=== PATIENT | female | born 1935 ===

== ENCOUNTER 2023-04-29 09:30 | Inpatient (IN) | payer OTHER ==
[~2023-04-29] VITALS: Ht 157.5 cm; Wt 54.4 kg
[2023-04-29] MEDS ORDERED: GLUMETZA500 MG (12:58)
[2023-04-29] MEDS ORDERED: OMEPRAZOLE MAGN20 MG (12:58)
[2023-04-29] MEDS ORDERED: VASOTEC20 M1 (12:59)
[2023-04-29] MEDS ORDERED: LIPITOR40 MG (12:59)
[2023-04-29] MEDS ORDERED: FENOFIBRIC ACI105 MG (12:59)
[2023-04-29] MEDS ORDERED: PROPRANOLOL HCL20 MG (12:59)
[2023-05-06] MEDS ORDERED: HEMOSTATIC MATRIX 1 KIT KIT TOP ONE ×2 (08:00→11:18)
[2023-05-06] MEDS ORDERED: BUPIVACAINE HCL/PF 0.25% 30ML VIAL InF ONE (08:00)
[2023-05-06] MEDS ORDERED: METRONIDAZOLE/SODIUM CHLORIDE 500 MG/100 ML PIGGYBACK IV ONE ×2 (08:00→17:37)
[2023-05-06] MEDS ORDERED: CEFTRIAXONE SODIUM 2,000 MG VIAL ONE (08:00)
[2023-05-06] MEDS ORDERED: LIDOCAINE HCL 1%/Epi 20ML VIAL IJ ONE ×2 (08:00→11:17)
[2023-05-06] MEDS ORDERED: DIBUCAINE 15 GM OINT..GM. TUBE ONE (08:00)
[2023-05-06] MEDS ORDERED: POVIDONE-IODINE 118 ML BOTT TOP ONE ×2 (08:00→11:17)
[2023-05-06] MEDS ORDERED: BUPIVACAINE HCL/PF 0.5% 30ML ML ONE (11:17)
[2023-05-06] MEDS ORDERED: DIBUCAINE 30 GM TUBE ONE (11:18)
[2023-05-06] MEDS ORDERED: MORPHINE SULFATE 4 MG/ML CARTRIDGE IV PRN (14:30)
[2023-05-06] MEDS ORDERED: RINGERS SOLUTION,LACTATED 1,000 ML IV SCH (14:30)
[2023-05-06] MEDS ORDERED: ONDANSETRON HCL 2 MG/ML VIAL IV PRN (14:30)
[2023-05-06] MEDS ORDERED: OxyCODONE HCL 5 MG TABLET (ROXICODONE) PO PRN (14:30)
[2023-05-06] MEDS ORDERED: LACTOBACILLUS ACIDOPHILUS 1 CAP CAP PO SCH (14:33)
[2023-05-06] MEDS ORDERED: METRONIDAZOLE/SODIUM CHLORIDE 500 MG/100 ML PIGGYBACK IV SCH (17:00)
[2023-05-06] MEDS ORDERED: GABAPENTIN 300 MG CAPSULE PO SCH (17:00)
[2023-05-06] MEDS ORDERED: HYOSCYAMINE SULFATE 0.125 MG TAB.SUBL SL SCH (17:00)
[2023-05-06] MEDS ORDERED: ACETAMINOPHEN 500 MG GEL..CAP PO SCH (18:00)
[2023-05-06] MEDS ORDERED: CIPROFLOXACIN IN 5 % DEXTROSE 400 MG/200 ML PIGGYBAG IV SCH (21:00)
[2023-05-06] MEDS ORDERED: FAMOTIDINE/PF 20 MG/2 ML VIAL IV PUSH SCH (21:00)
[2023-05-07 07:48] LABS: ALBUMIN 2.4 gm/dL (3.4-5.0); CALCIUM 8.3 mg/dL (8.5-10.1); CREATININE SERUM 0.69 mg/dL (0.55-1.02); GFR 80.11; POTASSIUM 3.38 mEq/L (3.5-5.1)
[2023-05-07 07:51] LABS: HEMATOCRIT 30.2 % (36.0-45.00); HEMOGLOBIN 10.3 g/dL (12.0-15.00); MEAN CELL VOLUME 87.8 fL (80.00-100.00); MEAN CORPUSCULAR HGB CONC 34.1 g/dl (32.0-36.0); PLATELET COUNT 142 K/uL (150-450); RED BLOOD COUNT 3.43 M/uL (4.00-6.00); RED CELL DISTRIBUTION WIDTH 14.9 % (11.5-14.5)
[2023-05-07 07:55] LABS: MAGNESIUM 1.4 mg/dL (1.8-2.4)
[2023-05-07] MEDS ORDERED: TAMSULOSIN HCL 0.4 MG CAP PO SCH (09:00)
[2023-05-07] MEDS ORDERED: PROPRANOLOL HCL 20 MG TABLET PO SCH (09:00)
[2023-05-07] MEDS ORDERED: ENALAPRIL MALEATE 20 MG TABLET PO SCH (09:00)
[2023-05-07] MEDS ORDERED: AMOX1TAB5 PO (10:02)
[2023-05-07] MEDS ORDERED: ENOXAPARIN SODIUM 40 MG/0.4 ML SYRINGE SUBCUTANEO SCH (17:00)
[2023-05-08] MEDS ORDERED: ENOXAPARIN SODIUM 40 MG/0.4 ML SYRINGE SUBCUTANEO SCH (09:00)
== END 2023-05-07 11:59 | disposition home or self-care (01) | DRG 331 ==
LOC: O/R 05-06 05:30 → SURH 05-06 05:30
PROVIDERS: ADMIT Surgery; ATTEND Surgery
PROC: 0DBP0ZZ Excision of Rectum, Open Approach (ICD-10-PCS; 2023-05-06)
PROC: 0DUR0JZ Supplement Anal Sphincter with Synthetic Substitute, Open Approach (ICD-10-PCS; 2023-05-06)
PROC: 3E0T3BZ Introduction of Anesthetic Agent into Peripheral Nerves and Plexi, Percutaneous Approach (ICD-10-PCS; 2023-05-06)
PROC: 0DTNFZZ Resection of Sigmoid Colon, Via Natural or Artificial Opening With Percutaneous Endoscopic Assistance (ICD-10-PCS; principal; 2023-05-06 10:30)
DX: K62.3 Rectal prolapse (principal); R15.9 Full incontinence of feces; K62.89 Other specified diseases of anus and rectum; N81.84 Pelvic muscle wasting; Z20.822 Contact with and (suspected) exposure to COVID-19